=== PATIENT | female | born 1965 | race African-American/Black ===

== ENCOUNTER 2017-08-08 20:49 | Emergency (ER) | payer MEDICAID, OTHER ==
[~2017-08-08] VITALS: Ht 162.6 cm; Wt 92.0 kg
[2017-08-08] MEDS ORDERED: METHOCARBAMOL 500MG TABLET PO ONE (23:00)
[2017-08-08] MEDS ORDERED: KETOROLAC 60MG/2ML VIAL IM ONE (23:00)
[2017-08-08 23:40] VITALS: BP 136/72
== END 2017-08-08 23:40 | disposition home or self-care (01) ==
LOC: ER 22:08
DX: S29.011A Strain of muscle and tendon of front wall of thorax, initial encounter (principal); M54.9 Dorsalgia, unspecified; J45.909 Unspecified asthma, uncomplicated; F12.10 Cannabis abuse, uncomplicated; X58.XXXA Exposure to other specified factors, initial encounter; Y93.89 Activity, other specified; Y92.89 Other specified places as the place of occurrence of the external cause; Y99.8 Other external cause status; Z98.890 Other specified postprocedural states
CPT/HCPCS: 96372; 99283; J1885

== ENCOUNTER 2017-08-09 20:39 | Emergency (ER) | payer MEDICAID ==
[~2017-08-09] VITALS: Ht 162.6 cm; Wt 92.0 kg
[2017-08-09 21:39] VITALS: BP 150/91
[2017-08-09] MEDS ORDERED: HYDROCODONE/ACETAMINOPHEN 10/325MG TABLET PO ONE (22:15)
== END 2017-08-09 22:56 | disposition home or self-care (01) ==
LOC: ER 22:04
DX: S29.011A Strain of muscle and tendon of front wall of thorax, initial encounter (principal); M54.6 Pain in thoracic spine; X58.XXXA Exposure to other specified factors, initial encounter; Y93.89 Activity, other specified; Y92.89 Other specified places as the place of occurrence of the external cause; Y99.8 Other external cause status
CPT/HCPCS: 99283

== ENCOUNTER 2018-01-01 12:22 | Emergency (ER) | payer MEDICAID, OTHER ==
[~2018-01-01] VITALS: Ht 162.6 cm; Wt 91.0 kg
[2018-01-01 13:05] LABS: CHLORIDE 104 mEq/L (98-107); PROTHROMBIN TIME 10.6 sec (9.4-11.6)
[2018-01-01 13:06] LABS: BASOPHILS % 0.6 % (0.0-2.0); EOSINOPHILS % 1.8 % (0.0-5.0); HEMATOCRIT. 39.3 % (36.0-48.0); HEMOGLOBIN. 13.4 g/dL (12.0-16.0); LYMPHOCYTES % 40.2 % (20.0-50.0); MEAN CORPUSCULAR HEMOGLOBIN 30.4 pg (28.0-32.0); MEAN CORPUSCULAR VOLUME 89.5 fL (81.0-99.0); MEAN PLATELET VOLUME 11.4 fl (7.4-10.4); NEUTROPHILS % 51.4 % (40.0-76.0); PLATELET 216 x1000/uL (130-400); RED BLOOD CELL COUNT 4.39 mill/uL (4.2-5.4); RED CELL DISTRIBUTION WIDTH 13.4 % (11.6-14.6)
[2018-01-01] MEDS ORDERED: MORPHINE SULFATE 4 MG/ML CPJ (NOT FOR IM USE) IV STA (14:20)
[2018-01-01] MEDS ORDERED: ONDANSETRON HCL 4MG/2ML VIAL IV STA (14:20)
[2018-01-01] MEDS ORDERED: KETOROLAC 30MG/ML VIAL IV STA (14:20)
[2018-01-01] MEDS ORDERED: SODIUM CHLORIDE 0.9% 1,000 ML IV ONE (14:20)
[2018-01-01 14:53] LABS: AMMONIA 30 uMol/L (<32); ETHANOL BLOOD < 10 mg/dL
[2018-01-01 14:56] LABS: CREATINE KINASE 153 IU/L (26-192)
[2018-01-01 14:57] LABS: HCG SCREEN NEGATIVE
[2018-01-01 14:59] LABS: PHENOBARBITAL < 2.1 ug/mL (15.0-40.0)
[2018-01-01 15:12] LABS: CARBAMAZEPINE < 0.5 ug/mL (4-12); VALPROIC ACID < 3.0 ug/mL (50-100)
[2018-01-01 15:28] LABS: CLARITY URINE CLEAR (CLEAR); COLOR URINE YELLOW (YELLOW); KETONES URINE NEGATIVE (NEGATIVE); LEUKOCYTE ESTERASE URINE NEGATIVE (NEGATIVE); NITRITE URINE NEGATIVE (NEGATIVE); OCCULT BLOOD URINE NEGATIVE (NEGATIVE); PH URINE 7.5 (4.5-8.0); PROTEIN URINE NEGATIVE (NEGATIVE); SPECIFIC GRAVITY URINE 1.015 (1.005-1.030); UROBILINOGEN URINE 0.2 E.U./dL (0.2-1.0)
[2018-01-01 15:36] LABS: *AMPHETAMINES SCREEN URINE NEGATIVE (NEGATIVE); *BARBITURATES SCREEN URINE NEGATIVE (NEGATIVE)
[2018-01-01 15:38] LABS: *BENZODIAZEPINES SCREEN URINE NEGATIVE (NEGATIVE); *COCAINE SCREEN URINE NEGATIVE (NEGATIVE); CANNABINOID URINE SCREEN PRESUMTIVE POSITIVE (NEGATIVE); METHADONE URINE SCREEN NEGATIVE (NEGATIVE); OPIATES URINE SCREEN NEGATIVE (NEGATIVE); PHENCYCLIDINE URINE SCREEN NEGATIVE (NEGATIVE)
[2018-01-01] MEDS ORDERED: TRAMADOL 50MG TABLET PO ONE (18:00)
[2018-01-01] MEDS ORDERED: ACETAMINOPHEN 325MG TABLET PO ONE (18:00)
[2018-01-01] MEDS ORDERED: METOCLOPRAMIDE HCL 10MG/2ML VIAL IV ONE (18:00)
[2018-01-01] MEDS ORDERED: MORPHINE SULFATE 4 MG/ML CPJ (NOT FOR IM USE) IV ONE (18:30)
[2018-01-01] MEDS ORDERED: ONDANSETRON HCL 4MG/2ML VIAL IV ONE (18:30)
[2018-01-01 19:30] VITALS: BP 141/94
== END 2018-01-01 19:30 | disposition home or self-care (01) ==
LOC: ER 12:22
DX: G43.909 Migraine, unspecified, not intractable, without status migrainosus (principal); R03.0 Elevated blood-pressure reading, without diagnosis of hypertension; F12.90 Cannabis use, unspecified, uncomplicated
CPT/HCPCS: 36415; 70450; 80048; 80076; 80156; 80165; 80184; 80185; 80305; 81003; 81025; 82140; 82550; 84443; 84484; 84703; 85025; 85610; 96361; 96374; 96375; 99285; G0482; J1885; J2270; J2405; J7030; Z7610